=== PATIENT | female | born 2005 | race Caucasian/White ===

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

== ENCOUNTER 2023-02-04 13:28 | Oncology outpatient (recurring) (ONCR) | payer MEDICAID, SELFPAY ==
[2023-02-04 13:40] VITALS: BP 121/70; PULSE 90; RESP 16; TEMP 37.7; O2SAT 99
[2023-02-04 13:57] LABS: Basophils % 0.7 %; Eosinophils % 0.2 %; Hematocrit 42.2 % (36-47); Lymphocytes # 2.5 10^3/uL (1.5-6.5); Lymphocytes % 54.9 %; Mean Corpuscular HGB Conc 34.1 g/dL (30-55); Mean Corpuscular Hemoglobin 30.1 pg (27-33); Mean Corpuscular Volume 88.1 fl (85-98); Mean Platelet Volume 9.7 fL (7.4-10.4); Monocytes # 0.4 10^3/uL (0.2-0.9); Monocytes % 9.7 %; Neutrophils # 1.56 10^3/uL (1.8-8.0); Neutrophils % 34.3 %; Nucleated Red Blood Cells % 0 %; Platelet Count 255 10^3/cmm (157-399); Red Blood Count 4.79 10^6/uL (3.85-5.65); Red Cell Distribution Width 12.3 % (12.1-15.1); White Blood Count 4.55 10^3/uL (4.5-13.0)
[2023-02-04 14:17] LABS: Alanine Aminotransferase 29 U/L (0-33); Albumin Level 4.2 g/dL (3.5-5.2); Alkaline Phosphatase 64 U/L (35-105); Aspartate Amino Transferase 25 U/L (0-32); Blood Urea Nitrogen 5 mg/dL (6-20); Calcium 9.2 mg/dL (8.5-10.5); Carbon Dioxide 24 mmol/L (22-29); Chloride 104 mmol/L (98-107); Globulin 3.4 g/dL (1.3-4.6); Glomerular Filtration Rate 107.8 mL/min (90-130); Glucose 104 mg/dL (65-115); Lactate Dehydrogenase 258 U/L (135-214); Osmolality Calculated 286 mOsm/kg (285-295); Sodium 139 mmol/L (136-145); Total Protein 7.6 g/dL (6.6-8.7)
[2023-02-04 15:05] LABS: Slide Review Slide Review Perform
== END 2023-02-13 23:59 | disposition home or self-care (01) ==
PROVIDERS: Nurse Practitioner Family; PCP Nurse Practitioner Family; Visit Provider Internal Medicine Medical Oncology
DX: D75.839 Thrombocytosis, unspecified (principal); R53.83 Other fatigue; Z79.899 Other long term (current) drug therapy
CPT/HCPCS: 36415; 80053; 83615; 85025

== ENCOUNTER → 2023-06-14 13:49 | Outpatient (BNVA) | payer MEDICAID, SELFPAY | PROVIDERS: PCP Nurse Practitioner Family; Visit Provider Registered Nurse Neonatal Intensive Care | DX: R30.0 Dysuria (principal) | CPT/HCPCS: 81000; 87077; 87086; 87184 ==

== ENCOUNTER → 2024-04-20 16:10 | Outpatient (BNVA) | payer MEDICAID, SELFPAY | PROVIDERS: PCP Nurse Practitioner Family; Visit Provider Nurse Practitioner Family | DX: R10.9 Unspecified abdominal pain (principal) | CPT/HCPCS: 81000 ==

== ENCOUNTER → 2024-05-12 12:51 | Outpatient (BNVA) | payer MEDICAID, SELFPAY | PROVIDERS: PCP Nurse Practitioner Family; Visit Provider Nurse Practitioner Family | DX: R10.9 Unspecified abdominal pain (principal); N93.9 Abnormal uterine and vaginal bleeding, unspecified | CPT/HCPCS: 80053; 84443; 85025 ==

== ENCOUNTER 2024-05-28 07:53 | Outpatient (CLI) | payer MEDICAID, SELFPAY ==
[2024-05-28] MEDS: iohexol 350 mg/mL 500 mL Btl (per mL) PO (08:41)
[2024-05-28] MEDS: iohexol 350 mg/mL 500 mL Btl (per mL) IV (08:41)
--- NOTE | 2024-05-28 08:45 | CT_ITS ---
WS: [id number] CT ABDOMEN AND PELVIS WITH CONTRAST HISTORY: R10.9 - Unspecified abdominal pain, RIGHT lower quadrant pain. Occasional left-sided pain. TECHNIQUE: Imaging performed of the abdomen and pelvis with IV contrast. Single phase imaging of the abdomen. Coronal and sagittal reformats are submitted. All CT scans at [facility] use at least one of these dose optimization techniques: automated exposure control; mA and/or kV adjustment per patient size (includes targeted exams where dose is matched to clinical indication); or iterative reconstruction. IV CONTRAST: Omnipaque 350; 100 mL IV. Oral contrast: Yes. DLP: 300.58 mGy.cm COMPARISON: 10/20/2018 Lower thorax: Lung bases are clear. Heart is normal size. No hiatal hernia. Liver/biliary system: Normal size liver. Focal fatty sparing along the falciform ligament. Fatty sparing is similar to the study from 2019. Gallbladder: Normal. No gallstones or wall thickening. No pericholecystic fluid. Pancreas: Normal size pancreas and pancreatic duct. No adjacent inflammation. Spleen: Normal size spleen. No mass or infarct. Adrenal glands: Normal. Right kidney: Normal. Left kidney: Normal. Aorta: Limited enhancement within the aorta and mesenteric arteries. No abnormality identified. Lymphadenopathy: No pathologically enlarged lymph nodes. There are very small mesenteric lymph nodes which were also present on the prior study. Free fluid: None. GI tract: No GI tract obstruction. No colitis. The appendix is identified and contains air. No appendiceal dilatation or inflammation. No colitis. Abdominal wall: Unremarkable abdominal wall. No hernia. Pelvis: No free fluid or adenopathy within the pelvis. Urinary bladder is well distended. Fullness and low-attenuation along the cervical canal was not present in 2019. Small follicles within each ovary. Bones: Unremarkable. CT/CT abdomen pelvis w con* [id number] IMPRESSION: 1. Normal appendix. 2. Normal gallbladder. 3. No renal obstruction. 4. New fullness and low-attenuation along the cervix. These findings are new s estelle the prior CT of 2019. Recommend follow-up [employer] evaluation and cervical biop sy if this has not been performed recently. Transvaginal pelvic ultrasound may provide additional information also.
== END 2024-05-28 07:54 | disposition home or self-care (01) ==
LOC: RAD 07:55
PROVIDERS: PCP Nurse Practitioner Family; Visit Provider Nurse Practitioner Family
DX: R10.9 Unspecified abdominal pain (principal); N93.9 Abnormal uterine and vaginal bleeding, unspecified; R11.0 Nausea; R93.89 Abnormal findings on diagnostic imaging of other specified body structures; R93.2 Abnormal findings on diagnostic imaging of liver and biliary tract; R59.0 Localized enlarged lymph nodes
CPT/HCPCS: 74177

== ENCOUNTER 2024-06-09 07:24 | Outpatient (CLI) | payer MEDICAID, SELFPAY ==
--- NOTE | 2024-06-09 07:30 | US_ITS ---
WS: [id number] US pelv w/transvag [id number] HISTORY: R10.9 - Unspecified abdominal pain COMPARISON: CT 05/28/2024 Uterus: 8.7 cm x 4.4 cm x 3.1 cm. Normal size anteverted uterus. No fibroid or mass. Cervix is enlarged. Seen best on the transvaginal ultrasound. There is no discrete mass and there is no significant increased vascularity but cervix is heterogeneous with thickening. Endometrium: 0.6 cm. Normal. Right ovary: 3.0 cm x 2.1 cm x 2.4 cm. Normal size and vascularity, no cystic or solid masses. Left ovary: 3.0 cm x 1.3 cm x 2.2 cm. Normal size and vascularity, no cystic or solid masses. No free fluid in the cul-de-sac. US/US pelv w/transvag [id number] IMPRESSION: 1. Reidentified is thickening, mild heterogeneity and mild edema within the ce rvix. There is no mass identified and no increased vascularity. Differential in cludes neoplasm and cervicitis which can be seen with infection. Recommend Pap smear evaluation. 2. The remaining uterus and ovaries are unremarkable.
== END 2024-06-09 07:25 | disposition home or self-care (01) ==
PROVIDERS: PCP Nurse Practitioner Family; Visit Provider Nurse Practitioner Family
DX: R10.9 Unspecified abdominal pain (principal); N93.9 Abnormal uterine and vaginal bleeding, unspecified; N88.8 Other specified noninflammatory disorders of cervix uteri
CPT/HCPCS: 76830; 76856

== ENCOUNTER → 2024-06-21 16:06 | Outpatient (BNVA) | payer MEDICAID, SELFPAY | PROVIDERS: PCP Nurse Practitioner Family; Visit Provider Obstetrics & Gynecology | DX: Z01.419 Encounter for gynecological examination (general) (routine) without abnormal findings (principal) | CPT/HCPCS: 87624 ==

== ENCOUNTER → 2024-11-09 14:51 | Outpatient (BNVA) | payer MEDICAID, SELFPAY | PROVIDERS: PCP Nurse Practitioner Family; Visit Provider Nurse Practitioner Family | DX: R39.9 Unspecified symptoms and signs involving the genitourinary system (principal); N89.8 Other specified noninflammatory disorders of vagina | CPT/HCPCS: 81000; 87491; 87591; 87661 ==